=== PATIENT | female | born 1945 | race Caucasian/White ===

== ENCOUNTER 2016-06-06 11:32 | Outpatient (RCR) | payer MEDICARE, MEDICAID ==
--- OUTSIDE RECORDS SUMMARY | 2016-05-10 11:21 | XMS REPORT | Continuity of Care Document ---
Author Author [facility] Organization [facility] Address Unknown Phone Unavailable Care Team Providers Care Oil Field Pumper Name Role Phone ALEXA KRISHNA MD PCP Insurance Providers Payer Name Policy Number Subscriber Name Relationship [employer] [id number] Jazmyne Diaz 16 Self / Same As Patient [facility] [id number] Jazmyne Diaz 18 Self / Same As Patient Advance Directives Directive Response Recorded Date/Time Advance Directives No 12/09/15 10:28am Health Care Power of Gun Perforator Loader Yes 12/09/15 10:28am Organ Donor Yes 12/09/15 10:28am Resuscitation Status Full Code 12/09/15 10:28am Problems Active Problems Medical Problem Onset Date Status 1. Left breast carcinoma Unknown Acute 1. Left breast carcinoma 2. Bilateral thyroid nodules Unknown Acute Medications Current Home Medications Medication Dose Units Route Directions Days/Qty Instructions Start Date Multivits,Stress Formula 1 Each 1 Each Oral Daily 11/13/15 Calcium Carbonate 500 Mg 500 Mg Oral Daily 11/13/15 Cholecalciferol (Vitamin D3) 1,000 Unit 1,000 Unit Oral Daily Acyclovir 400 Mg 400 Mg Oral Twice A Day 11/13/15 Amlodipine Besylate 10 Mg 10 Mg Oral Daily 11/13/15 Levothyroxine Sodium 25 Mcg 25 Mcg Oral Daily 11/13/15 Lovastatin 20 Mg 20 Mg Oral Daily 11/13/15 Magnesium Oxide 250 Mg 250 Mg Oral Daily 11/13/15 Meloxicam 15 Mg 15 Mg Oral Daily 11/13/15 Mirtazapine 15 Mg 15 Mg Oral Daily 11/13/15 Valacyclovir Hcl 1,000 Mg 1,000 Mg Oral Daily 11/13/15 Pantoprazole Sodium 20 Mg 20 Mg Oral Daily 11/16/15 Oxycodone Hcl/Acetaminophen 1 Each 1-2 Each Oral Every 4HRS as needed for Pain 30 11/19/15 Past Home Medications Medication Directions Ordered Status Gabapentin 300 Mg Capsule, 300 Mg Oral Three Times A Day 11/13/15 Discontinued Omeprazole 20 Mg Tablet.dr, 20 Mg Oral Daily 11/13/15 Discontinued Social History Social History Problem Response Recorded Date/Time Alcohol Use Occasionally Uses 12/09/2015 10:28am Recreational Drug Use No 12/09/2015 10:28am Recent Foreign Travel No 12/09/2015 10:28am Recent Infectious Disease Exposure No 12/09/2015 10:28am Hospitalization with Isolation Denies 12/09/2015 10:28am HIV/AIDS No 12/09/2015 10:28am Smoking Status Never a Smoker 12/09/2015 10:32am Query Response Start Date Stop Date Smoking Status Never a Smoker Hospital Discharge Instructions No hospital discharge instructions. Plan of Care Discharge Date 12/09/15 10:43am Prescriptions See Medication Section Functional Status No functional status results. Allergies, Adverse Reactions, Alerts Allergen Type Severity Reaction Status Last Updated Penicillins ([id number]) Allergy Severe ANAPHYLAXIS Active 11/13/15 Immunizations Name Given Type Date of Pneumonia Vaccine 08/07/11 Historical Vital Signs Acute Vital Signs Vital Response Date/Time Temperature (Fahrenheit) 97.6 degrees F (97.6 - 99.5) 11/19/2015 12:51pm Temperature (Calculated Celsius) 36.67178 degrees C (36.4 - 37.5) 11/19/2015 6:22am Temperature Source Tympanic 11/19/2015 12:51pm Pulse Rate (adult) 78 bpm (60 - 90) 11/19/2015 12:51pm Respiratory Rate 19 bpm (12 - 24) 11/19/2015 12:51pm O2 Sat by Pulse Oximetry 93 % (88 - 100) 11/19/2015 12:51pm Blood Pressure 131/86 mm Hg 11/19/2015 12:51pm Blood Pressure Mean 101 mm Hg 11/19/2015 6:22am Pain Pain Intensity 8 11/19/2015 1:01pm Height (Feet) 5 feet 12/09/2015 10:28am Height (Inches) 1.00 inches 12/09/2015 10:28am Height (Calculated Centimeters) 154.407426 cm 12/09/2015 10:28am Weight (Pounds) 174 pounds 12/09/2015 10:28am Weight (Ounces) 0.0 oz 12/09/2015 10:28am Weight (Calculated Grams) 46339.073 gm 12/09/2015 10:28am Weight (Calculated Kilograms) 78.292260 kilograms 12/09/2015 10:28am Calculated BMI 28.95 12/09/2015 10:28am Results Laboratory Results Test Name Result Units Flags Reference Collection Date/Time Result Date/ Time Comments White Blood Count 7.5 10^3/uL 4.3-11.0 12/07/2015 2:15pm 12/07/2015 2: 19pm Red Blood Count 4.59 10^6/uL 4.35-5.85 12/07/2015 2:15pm 12/07/2015 2: 19pm Hemoglobin 14.3 G/DL 11.5-16.0 12/07/2015 2:15pm 12/07/2015 2:19pm Hematocrit 44 % 35-52 12/07/2015 2:15pm 12/07/2015 2:19pm Mean Corpuscular Volume 95 FL 80-99 12/07/2015 2:15pm 12/07/2015 2: 19pm Mean Corpuscular Hemoglobin 31 PG 25-34 12/07/2015 2:15pm 12/07/2015 2: 19pm Mean Corpuscular Hemoglobin Concent 33 G/DL 32-36 12/07/2015 2:15pm 09/2015 2:19pm Red Cell Distribution Width 14.1 % 10.0-14.5 12/07/2015 2:15pm 2015 2:19pm Platelet Count 341 10^3/uL 130-400 12/07/2015 2:15pm 12/07/2015 2:19pm Mean Platelet Volume 9.5 FL 7.4-10.4 12/07/2015 2:15pm 12/07/2015 2: 19pm Neutrophils (%) (Auto) 60 % 42-75 12/07/2015 2:15pm 12/07/2015 2:19pm Lymphocytes (%) (Auto) 31 % 12-44 12/07/2015 2:15pm 12/07/2015 2:19pm Monocytes (%) (Auto) 6 % 0-12 12/07/2015 2:15pm 12/07/2015 2:19pm Eosinophils (%) (Auto) 2 % 0-10 12/07/2015 2:15pm 12/07/2015 2:19pm Basophils (%) (Auto) 1 % 0-10 12/07/2015 2:1512/07/2015 2:19pm Neutrophils # (Auto) 4.5 X 10^3 1.8-7.8 12/07/2015 2:15pm 12/07/2015 2: 19pm Lymphocytes # (Auto) 2.4 X 10^3 1.0-4.0 12/07/2015 2:15pm 12/07/2015 2: 19pm Monocytes # (Auto) 0.5 X 10^3 0.0-1.0 12/07/2015 2:1512/07/2015 2: 19pm Eosinophils # (Auto) 0.2 10^3/uL 0.0-0.3 12/07/2015 2:15pm 12/07/2015 2 :19pm Basophils # (Auto) 0.0 10^3/uL 0.0-0.1 12/07/2015 2:15pm 12/07/2015 2: 19pm Sodium Level 142 MMOL/L 135-145 12/07/2015 2:1512/07/2015 3:09pm Potassium Level 3.5 MMOL/L L 3.6-5.0 12/07/2015 2:1512/07/2015 3:09pm Chloride Level 106 MMOL/L 98-107 12/07/2015 2:15pm 12/07/2015 3:09pm Carbon Dioxide Level 24 MMOL/L 21-32 12/07/2015 2:pm 12/07/2015 3: 09pm Anion Gap 12 MMOL/L 5-14 12/07/2015 2:15pm 12/07/2015 3:09pm Blood Urea Nitrogen 8 MG/DL 7-18 12/07/2015 2:1512/07/2015 3:09pm Creatinine 0.70 MG/DL 0.60-1.30 12/07/2015 2:15pm 12/07/2015 3:09pm BUN/Creatinine Ratio 11 12/07/2015 2:15pm 12/07/2015 3:09pm Estimat Glomerular Filtration Rate > 60 12/07/2015 2:15pm 2015 3:09pm GFR INTERPRETIVE DATA UNITS FOR ESTIMATED GFR (eGFR): mL/min/1.73 M2 REFERENCE RANGE FOR ESTIMATED GFR (eGFR) eGFR NORMAL eGFR >60 MODERATELY DECREASED eGFR 30-59 SEVERLY DECREASED eGFR 15-29 KIDNEY FAILURE <15 (OR DIALYSIS) Glucose Level 100 MG/DL 70-105 12/07/2015 2:15pm 12/07/2015 3:09pm Calcium Level 9.4 MG/DL 8.5-10.1 12/07/2015 2:15pm 12/07/2015 3:09pm Total Bilirubin 0.4 MG/DL 0.1-1.0 12/07/2015 2:15pm 12/07/2015 3:09pm Alkaline Phosphatase 84 U/L 40-136 12/07/2015 2:15pm 12/07/2015 3:09pm Aspartate Amino Transf (AST/SGOT) 23 U/L 5-34 12/07/2015 2:15pm 2015 3:09pm Alanine Aminotransferase (ALT/SGPT) 26 U/L 0-55 12/07/2015 2:15pm 12/06 3:09pm Total Protein 6.9 G/DL 6.4-8.2 12/07/2015 2:15pm 12/07/2015 3:09pm Albumin 4.3 G/DL 3.2-4.5 12/07/2015 2:15pm 12/07/2015 3:09pm Thyroid Stimulating Hormone (TSH) 2.25 UIU/ML 0.35-4.94 11/13/2015 2: 53pm 11/13/2015 3:54pm Free Thyroxine 0.97 NG/DL 0.70-1.48 11/13/2015 2:53pm 11/13/2015 3: 54pm Pending Laboratory Results Test Name Collection Date/Time Pending Microbiology Results Procedure Source Collection Date/Time Procedures Procedure Status Date Provider(s) RESECTION OF LEFT BREAST, OPEN APPROACH Completed 11/16/15 MANSOOR WHYTE MD EXCISION OF LEFT AXILLARY LYMPHATIC, OPEN APPROACH Completed 11/16/15 MANSOOR WHYTE MD RESECTION OF THYROID GLAND, OPEN APPROACH Completed 11/16/15 MANSOOR WHYTE MD MONITOR PERIPHERAL NERVOUS ELECTR ACTIVITY, INTRAOP, OPEN Completed 11/16/15 MANSOOR WHYTE MD Encounters Encounter Location Arrival/Admit Date Discharge/Depart Date Attending Provider Departed Clinic [facility] 12/09/15 5:34am 12/09/15 10: 43am MANSOOR WHYTE MD Registered Recurring [facility] 12/07/15 1:49pm MELANY CARRASCO MD Discharged Inpatient [facility] 11/16/15 7:00pm 1:10pm MANSOOR WHYTE MD Departed Clinic [facility] 11/13/15 1:19pm 11/13/15 5: 08pm MANSOOR WHYTE MD
[~2016-06-06 11:32] MED LIST: ACYC400T PO; AMLO10TA2 PO; CALC500T24 PO; CHOL10003 PO; GABA-488 PO; HYDR-3454 PO; LEVO25TA5 PO; LOVA20TA2 PO; MAGN250T13 PO; MELO15TA39 PO; MIRT15TA6 PO; MULT-10 PO; OMEP20TA7 PO; OXYC-197 PO; PANT20TA3 PO; TRAM50TA2 PO; VALA1000 PO
== END 2016-08-08 | disposition home or self-care (01) ==
LOC: ONC 11:32
PROVIDERS: ATTEND Internal Medicine Hematology & Oncology
DX: C50.912 Malignant neoplasm of unspecified site of left female breast (principal); Z45.2 Encounter for adjustment and management of vascular access device
CPT/HCPCS: 96523